=== PATIENT | male | born 1945 | race Caucasian/White ===

== ENCOUNTER → 2020-09-10 | Emergency (ER) | payer OTHER ==
[~2020-09-10] VITALS: Ht 175.3 cm; Wt 77.1 kg
== END | disposition designated cancer center or children's hospital (05) ==
LOC: ER 09:47
DX: I63.89 Other cerebral infarction (principal)
CPT/HCPCS: 70551

== ENCOUNTER 2020-10-21 14:56 | Outpatient (CLI) | payer OTHER | END 2020-10-21 15:04 | disposition home or self-care (01) | LOC: RAD 14:56 | PROVIDERS: ATTEND Physical Medicine & Rehabilitation | DX: M17.11 Unilateral primary osteoarthritis, right knee (principal) ==

== ENCOUNTER 2020-11-04 07:39 | Outpatient (CLI) | payer OTHER | END 2020-11-04 07:54 | disposition home or self-care (01) | LOC: SONOGRAMA 07:39 | PROVIDERS: ATTEND Internal Medicine | DX: I11.9 Hypertensive heart disease without heart failure (principal) ==

== ENCOUNTER → 2021-03-01 | Outpatient (CLI) | payer OTHER | END | disposition home or self-care (01) | LOC: PPH VACUNA 14:00 | PROVIDERS: ATTEND Emergency Medicine Pediatric Emergency Medicine | DX: Z23 Encounter for immunization (principal) ==

== ENCOUNTER 2021-09-03 08:00 | Outpatient (CLI) | payer OTHER | END 2021-09-03 08:30 | disposition home or self-care (01) | LOC: PPH VACUNA 08:00 | PROVIDERS: ATTEND Emergency Medicine Pediatric Emergency Medicine | DX: Z23 Encounter for immunization (principal) ==

== ENCOUNTER 2021-09-05 09:23 | Emergency (ER) | payer OTHER ==
[~2021-09-05] VITALS: Ht 172.7 cm; Wt 71.7 kg
== END 2021-09-05 12:05 | disposition home or self-care (01) ==
LOC: ER 09:23
DX: R41.0 Disorientation, unspecified (principal); U09.9 Post COVID-19 condition, unspecified; E11.9 Type 2 diabetes mellitus without complications

== ENCOUNTER 2021-11-02 08:54 | Outpatient (CLI) | payer OTHER | END 2021-11-02 08:57 | disposition home or self-care (01) | LOC: MRI 08:54 | PROVIDERS: ATTEND Psychiatry & Neurology Neurology | DX: I63.312 Cerebral infarction due to thrombosis of left middle cerebral artery (principal); G40.009 Localization-related (focal) (partial) idiopathic epilepsy and epileptic syndromes with seizures of localized onset, not intractable, without status epilepticus | CPT/HCPCS: 70551 ==

== ENCOUNTER → 2022-02-23 | Outpatient (CLI) | payer OTHER | END | disposition home or self-care (01) | LOC: RAD 11:55 | PROVIDERS: ATTEND Physical Medicine & Rehabilitation | DX: M17.11 Unilateral primary osteoarthritis, right knee (principal); M54.2 Cervicalgia ==

== ENCOUNTER 2022-05-19 10:38 | Outpatient (CLI) | payer OTHER | END 2022-05-19 10:48 | disposition home or self-care (01) | LOC: PPH VACUNA 10:38 | PROVIDERS: ATTEND Emergency Medicine Pediatric Emergency Medicine | DX: Z23 Encounter for immunization (principal) ==

== ENCOUNTER 2022-09-14 07:54 | Outpatient (CLI) | payer OTHER | END 2022-09-14 08:05 | disposition home or self-care (01) | LOC: SONOGRAMA 07:54 | PROVIDERS: ATTEND Internal Medicine | DX: N18.9 Chronic kidney disease, unspecified (principal); D59.39 Other hemolytic-uremic syndrome ==

== ENCOUNTER 2022-09-14 09:03 | Outpatient (CLI) | payer OTHER | END 2022-09-14 09:05 | disposition home or self-care (01) | LOC: NUCLEAR 09:03 | PROVIDERS: ATTEND Internal Medicine Endocrinology, Diabetes & Metabolism | DX: M85.89 Other specified disorders of bone density and structure, multiple sites (principal); Z13.820 Encounter for screening for osteoporosis ==

== ENCOUNTER 2022-12-15 09:00 | Outpatient (CLI) | payer OTHER | END 2022-12-15 09:08 | disposition home or self-care (01) | LOC: SONOGRAMA 09:00 | PROVIDERS: ATTEND Internal Medicine | DX: N18.32 Chronic kidney disease, stage 3b (principal); I12.9 Hypertensive chronic kidney disease with stage 1 through stage 4 chronic kidney disease, or unspecified chronic kidney disease ==

== ENCOUNTER 2023-05-15 09:53 | Outpatient (CLI) | payer OTHER | END 2023-05-15 09:54 | disposition home or self-care (01) | LOC: NUCLEAR 09:53 | DX: I65.29 Occlusion and stenosis of unspecified carotid artery (principal) ==

== ENCOUNTER 2024-09-24 13:27 | Outpatient (CLI) | payer OTHER | END 2024-09-25 08:05 | disposition home or self-care (01) | LOC: NUCLEAR 13:27 | PROVIDERS: ATTEND Internal Medicine Endocrinology, Diabetes & Metabolism | DX: M85.89 Other specified disorders of bone density and structure, multiple sites (principal); M81.0 Age-related osteoporosis without current pathological fracture ==

== ENCOUNTER 2025-04-15 13:41 | Outpatient (CLI) | payer OTHER | END 2025-04-15 13:47 | disposition home or self-care (01) | LOC: SONOGRAMA 13:41 | DX: N28.1 Cyst of kidney, acquired (principal) ==